=== PATIENT | female | born 1995 | race African-American/Black ===

== ENCOUNTER 2020-09-20 06:58 | Inpatient (IN) ==
[2020-09-20] MEDS ORDERED: Lactated Ringers 1000 ml BAG 1,000 ML IV ONE ×2 (07:34→17:06)
[2020-09-20 10:12] LABS: ABS Basophils 0.1 10^3/ul (0-0.2); ABS Eosinophils 0.1 10^3/ul (0-0.6); ABS Lymphocytes 1.3 10^3/ul (1.0-4.8); ABS Monocytes 0.5 10^3/ul (0-0.8); Eosinophil % 0.8 %; Hematocrit 31 % (35-47); Hemoglobin 9.4 g/dL (12.0-16.0); Lymphocyte % 10.8 %; Mean Corpuscular HGB Conc 31 g/dL (31-36); Mean Corpuscular Hemoglobin 21 pg (27-31); Mean Corpuscular Volume 67 fL (80-97); Mean Platelet Volume 8.8 fL (7.4-10.4); Nucleated Red Blood Cells % 0.1; Platelet Count 254 10^3/uL (150-450); Red Blood Count 4.57 10^6 /uL (3.70-4.87); Red Cell Distribution Width 20 % (10-15); White Blood Count 11.9 10^3/uL (3.5-10.8)
[2020-09-20 10:34] LABS: Urine Benzodiazepine Screen None Detected (None Detect); Urine Cannabinoids Screen None Detected (None Detect); Urine Opiates Screen None Detected (None Detect)
[2020-09-20 10:53] LABS: Microcytosis 1+; Polychromasia 1+
[2020-09-20] MEDS ORDERED: OBEPIDURAL 250 ML EPIDURAL ONE (16:01)
[2020-09-20] MEDS ORDERED: Lactated Ringers 1000 ml BAG 1,000 ML IV SCH ×3 (17:00→21:00)
[2020-09-20] MEDS ORDERED: Phenylephrine 40 mcg/mL 10mL (400mcg) SYRINGE IV PUSH PRN ×2 (17:06)
[2020-09-20] MEDS ORDERED: Sodium Citrate/Citric Acid LIQ 15 ML UDC PO PRN (17:06)
[2020-09-20] MEDS ORDERED: Lactated Ringers 1000 ml BAG 500 ML IV PRN ×2 (17:06)
[2020-09-20] MEDS ORDERED: EPHEDrine (Pressors) 50 MG/ML VIAL IV PUSH PRN ×2 (17:06)
[2020-09-20] MEDS ORDERED: OBEPIDURAL 250 ML EPIDURAL SCH (18:00)
[2020-09-20] MEDS ORDERED: Oxytocin in LR 20 UNITS/1,000 ML BAG IVPB ONE (19:52)
[2020-09-20] MEDS ORDERED: Dibucaine 1% OINT 28.35 GM TUBE PR PRN (20:32)
[2020-09-20] MEDS ORDERED: Glycerin ADULT 2.4 gm SUPP PR PRN (20:32)
[2020-09-20] MEDS ORDERED: Lidocaine 1% VIAL 10 MG/ML VIAL ONE (20:57)
[2020-09-20] MEDS: Witch Hazel PAD JAR TOPICAL PRN (20:59)
[2020-09-20] MEDS ORDERED: Oxytocin in LR 20 UNITS/1,000 ML BAG IVPB SCH (21:00)
[2020-09-20] MEDS ORDERED: Ammonia Inhalant 1 EA AMP ONE (22:12)
[2020-09-21 06:23] LABS: ABS Basophils 0.1 10^3/ul (0-0.2); ABS Eosinophils 0.1 10^3/ul (0-0.6); ABS Lymphocytes 2.3 10^3/ul (1.0-4.8); ABS Monocytes 1.2 10^3/ul (0-0.8); ABS Neutrophils 12.4 10^3/ul (1.5-7.7); Eosinophil % 0.4 %; Hematocrit 24 % (35-47); Hemoglobin 7.6 g/dL (12.0-16.0); Lymphocyte % 14.6 %; Mean Corpuscular HGB Conc 31 g/dL (31-36); Mean Corpuscular Hemoglobin 21 pg (27-31); Mean Corpuscular Volume 66 fL (80-97); Mean Platelet Volume 8.6 fL (7.4-10.4); Platelet Count 214 10^3/uL (150-450); Red Blood Count 3.68 10^6 /uL (3.70-4.87); Red Cell Distribution Width 20 % (10-15)
[2020-09-21 06:47] LABS: Albumin 2.9 g/dL (3.2-5.2); BUN/Creatinine Ratio 10.6 (8-20); Calcium 8.4 mg/dL (8.6-10.3); EGFR African American 134.3 (>60); Globulin 2.9 g/dL (2-4); Potassium 3.8 mmol/L (3.5-5.0); Total Bilirubin 0.2 mg/dL (0.2-1.0); Total Protein 5.8 g/dL (6.4-8.9)
[2020-09-21] MEDS: Witch Hazel PAD JAR TOPICAL PRN (19:57)
[2020-09-22 08:31] VITALS: BP 130/64
[2020-09-22 10:02] LABS: Hematocrit 26 % (35-47); Mean Corpuscular HGB Conc 31 g/dL (31-36); Mean Corpuscular Hemoglobin 21 pg (27-31); Mean Corpuscular Volume 67 fL (80-97); Mean Platelet Volume 8.3 fL (7.4-10.4); Platelet Count 259 10^3/uL (150-450); Red Blood Count 3.89 10^6 /uL (3.70-4.87); Red Cell Distribution Width 20 % (10-15); White Blood Count 15.6 10^3/uL (3.5-10.8)
== END 2020-09-22 14:24 | disposition home or self-care (01) | DRG 560 ==
LOC: MCHOBOUT 06:58 → MCHOB 07:23
PROVIDERS: ADMIT Midwife; ATTEND Midwife

== ENCOUNTER 2020-10-28 12:41 | Inpatient (IN) ==
[2020-10-28] MEDS ORDERED: NS 0.9% 1000 ml BAG 1,000 ML IV ONE (15:14)
[2020-10-28 15:45] LABS: ABS Basophils 0.1 10^3/ul (0-0.2); ABS Lymphocytes 1.3 10^3/ul (1.0-4.8); ABS Monocytes 0.4 10^3/ul (0-0.8); ABS Neutrophils 8.6 10^3/ul (1.5-7.7); Eosinophil % 0.3 %; Hematocrit 36 % (35-47); Hemoglobin 11.4 g/dL (12.0-16.0); Lymphocyte % 12.9 %; Mean Corpuscular HGB Conc 32 g/dL (31-36); Mean Corpuscular Hemoglobin 21 pg (27-31); Mean Corpuscular Volume 67 fL (80-97); Mean Platelet Volume 8.6 fL (7.4-10.4); Platelet Count 388 10^3/uL (150-450); Red Blood Count 5.43 10^6 /uL (3.70-4.87); Red Cell Distribution Width 24 % (10-15); White Blood Count 10.4 10^3/uL (3.5-10.8)
[2020-10-28] MEDS ORDERED: Piperacillin/Tazobac ADVAN 3.375 GM in NS 0.9% 100 ml BAG 100 ML IV ONE (16:15)
[2020-10-28 16:25] LABS: Albumin 4.1 g/dL (3.2-5.2); Albumin/Globulin Ratio 1.2 (1-3); C Reactive Protein 4.82 mg/L (<8.01); Calcium 9.5 mg/dL (8.6-10.3); EGFR African American 115.9 (>60); EGFR Non-African American 95.8 (>60); Globulin 3.3 g/dL (2-4); Total Bilirubin 0.8 mg/dL (0.2-1.0); Total Protein 7.4 g/dL (6.4-8.9)
[2020-10-28] MEDS ORDERED: HYDROmorphone 1 MG/1 ML SYRINGE IV ONE (17:09)
[2020-10-28] MEDS ORDERED: Ondansetron 4 mg VIAL 2 MG/ML 2 ml VIAL IV ONE (17:09)
[2020-10-28] MEDS ORDERED: NS 0.9% 1000 ml BAG 1,000 ML IV SCH (17:45)
[2020-10-28 20:30] LABS: Urine Appearance Cloudy; Urine Bilirubin Negative (Negative); Urine Blood Negative (Negative); Urine Color Yellow; Urine Glucose Negative (Negative); Urine Ketones Negative (Negative); Urine Nitrite Negative (Negative); Urine Protein Negative (Negative); Urine Specific Gravity 1.028 (1.010-1.030); Urine Urobilinogen Negative (Negative)
[2020-10-28 20:39] LABS: Urine Bacteria 1+ (Absent); Urine Red Blood Cell Absent (Absent); Urine Squamous Epithelial Cell Present (Absent); Urine White Blood Cell 2+(11-20/hpf) (Absent)
[2020-10-28] MEDS: NS 0.9% 1000 ml BAG 1,000 ML IV SCH (21:08)
[2020-10-29] MEDS ORDERED: Morphine 2 MG/ML SYRINGE IV PRN (03:40)
[2020-10-29] MEDS: Ondansetron 4 mg VIAL 2 MG/ML 2 ml VIAL IV PRN (03:59)
[2020-10-29] MEDS: NS 0.9% 1000 ml BAG 1,000 ML IV SCH ×2 (05:02→22:25)
[2020-10-29 06:17] LABS: ABS Eosinophils 0.2 10^3/ul (0-0.6); ABS Lymphocytes 1.7 10^3/ul (1.0-4.8); ABS Monocytes 0.4 10^3/ul (0-0.8); Eosinophil % 2.7 %; Hematocrit 32 % (35-47); Hemoglobin 9.6 g/dL (12.0-16.0); Lymphocyte % 23.1 %; Mean Corpuscular HGB Conc 31 g/dL (31-36); Mean Corpuscular Hemoglobin 21 pg (27-31); Mean Corpuscular Volume 68 fL (80-97); Mean Platelet Volume 8.6 fL (7.4-10.4); Platelet Count 312 10^3/uL (150-450); Red Blood Count 4.66 10^6 /uL (3.70-4.87); Red Cell Distribution Width 24 % (10-15); White Blood Count 7.3 10^3/uL (3.5-10.8)
[2020-10-29 06:29] LABS: Albumin 3.2 g/dL (3.2-5.2); Albumin/Globulin Ratio 1.1 (1-3); BUN/Creatinine Ratio 9.5 (8-20); Calcium 7.8 mg/dL (8.6-10.3); EGFR African American 117.7 (>60); EGFR Non-African American 97.3 (>60); Globulin 2.8 g/dL (2-4); Indirect Bilirubin 0.4 mg/dL (0.3-1.0); Potassium 3.6 mmol/L (3.5-5.0); Total Bilirubin 0.6 mg/dL (0.2-1.0)
[2020-10-29 06:43] LABS: TSH Ultra Thyroid Stim Horm 0.48 mcIU/mL (0.34-5.60)
[2020-10-29] MEDS: Morphine 2 MG/ML SYRINGE IV PRN (08:54)
[2020-10-29] MEDS ORDERED: Polyethylene Glycol 3350 17 GM PACKET PO PRN (10:33)
[2020-10-29] MEDS ORDERED: Senna TAB 8.6 mg TAB PO PRN (10:33)
[2020-10-29] MEDS ORDERED: Piperacillin/Tazobac ADVAN 3.375 GM in NS 0.9% 100 ml BAG 100 ML IV ONE (11:00)
[2020-10-29] MEDS ORDERED: Zosyn per Pharmacy NOTE FOLLOW UP SCH (11:00)
[2020-10-29 11:55] LABS: HDL Cholesterol 41.1 mg/dL
[2020-10-29] MEDS: ZOSYN 3.375 GM Q8H per EXTENDED INFUSION IV SCH ×2 (16:43→23:56)
[2020-10-30] MEDS: NS 0.9% 1000 ml BAG 1,000 ML IV SCH ×2 (04:15→06:23)
[2020-10-30 05:03] LABS: Albumin/Globulin Ratio 1.2 (1-3); BUN/Creatinine Ratio 5.4 (8-20); Calcium 7.7 mg/dL (8.6-10.3); EGFR African American 117.7 (>60); EGFR Non-African American 97.3 (>60); Globulin 2.6 g/dL (2-4); Potassium 3.4 mmol/L (3.5-5.0); Total Bilirubin 0.5 mg/dL (0.2-1.0); Total Protein 5.6 g/dL (6.4-8.9)
[2020-10-30] MEDS: ZOSYN 3.375 GM Q8H per EXTENDED INFUSION IV SCH ×2 (08:16→19:09)
[2020-10-30] MEDS: Morphine 2 MG/ML SYRINGE IV PRN (08:19)
[2020-10-30 08:35] LABS: ABS Eosinophils 0.3 10^3/ul (0-0.6); ABS Lymphocytes 2.5 10^3/ul (1.0-4.8); ABS Monocytes 0.5 10^3/ul (0-0.8); ABS Neutrophils 4.3 10^3/ul (1.5-7.7); Eosinophil % 4.1 %; Hematocrit 30 % (35-47); Lymphocyte % 32.1 %; Mean Corpuscular HGB Conc 30 g/dL (31-36); Mean Corpuscular Hemoglobin 21 pg (27-31); Mean Corpuscular Volume 69 fL (80-97); Mean Platelet Volume 8.6 fL (7.4-10.4); Nucleated Red Blood Cells % 0.2; Platelet Count 289 10^3/uL (150-450); Red Blood Count 4.33 10^6 /uL (3.70-4.87); Red Cell Distribution Width 25 % (10-15); White Blood Count 7.6 10^3/uL (3.5-10.8)
[2020-10-30] MEDS ORDERED: Buffered Lidocaine 1% SYRIN 1 ml INTRADERM ONE (13:15)
[2020-10-30] MEDS ORDERED: Ondansetron 4 mg VIAL 2 MG/ML 2 ml VIAL ONE (13:16)
[2020-10-30] MEDS ORDERED: fentaNYL 250 mcg/5 ml 50 MCG/ML 5 ml VIAL (250 MCG) ONE (13:16)
[2020-10-30] MEDS ORDERED: Rocuronium 50 mg VIAL 10 mg/ml 5 ml VIAL (50 mg) ONE ×2 (13:16→13:53)
[2020-10-30] MEDS ORDERED: Propofol 10 MG/ML 20 ML BTL ONE ×2 (13:16→14:05)
[2020-10-30] MEDS ORDERED: Lidocaine 2% PF 5 ML VIAL ONE ×2 (13:16→14:05)
[2020-10-30] MEDS ORDERED: Dexamethasone IV 4 MG/ML VIAL 1 ml VIAL ONE (13:16)
[2020-10-30] MEDS ORDERED: diPHENhydraMINE IV 50 MG/ML 1 ml VIAL (BENADRYL) IV PRN (13:17)
[2020-10-30] MEDS ORDERED: HYDROmorphone 1 MG/1 ML SYRINGE IV PRN (13:17)
[2020-10-30] MEDS ORDERED: Naloxone 0.4 mg VIAL 0.4 mg/ml 1 ml VIAL IV PRN (13:17)
[2020-10-30] MEDS ORDERED: Midazolam 2 mg/2 ml VIAL 1 mg/ml 2 ml VIAL (2 mg) ONE ×2 (13:17→13:53)
[2020-10-30] MEDS ORDERED: Prochlorperazine 5 mg/ml 2 ml VIAL (10 mg) IV PRN (13:17)
[2020-10-30] MEDS ORDERED: Iohexol 180 (CONTRAST) 10 ML SDV IV ONE ×2 (13:36→15:29)
[2020-10-30] MEDS ORDERED: Bupivacaine 0.25% SDV 30 ML ONE (13:37)
[2020-10-30] MEDS ORDERED: fentaNYL 100 mcg/2 ml 50 MCG/ML VIAL ONE (13:52)
[2020-10-30] MEDS ORDERED: Lactated Ringers 1000 ml BAG 1,000 ML IV SCH (14:00)
[2020-10-30] MEDS ORDERED: Potassium Chlor 20 meq TAB.ER PO ONE (16:07)
[2020-10-30] MEDS: Ondansetron 4 mg VIAL 2 MG/ML 2 ml VIAL IV PRN (17:19)
[2020-10-30] MEDS ORDERED: Phenol 1.4% Throat Spray 177 ml BTL MT PRN (17:37)
[2020-10-31 06:27] LABS: Albumin 3.1 g/dL (3.2-5.2); Albumin/Globulin Ratio 1.1 (1-3); BUN/Creatinine Ratio 3.3 (8-20); Calcium 8.1 mg/dL (8.6-10.3); EGFR African American 149.9 (>60); EGFR Non-African American 123.9 (>60); Globulin 2.8 g/dL (2-4); Potassium 3.6 mmol/L (3.5-5.0); Total Bilirubin 1.2 mg/dL (0.2-1.0); Total Protein 5.9 g/dL (6.4-8.9)
[2020-10-31] MEDS: Morphine 2 MG/ML SYRINGE IV PRN (07:35)
[2020-10-31] MEDS: NS 0.9% 1000 ml BAG 1,000 ML IV SCH (09:13)
[2020-10-31 11:03] VITALS: BP 128/67
[2020-11-02] MEDS ORDERED: Scopolamine PATCH Remove NOTE PATCH OFF ONE (13:15)
== END 2020-10-31 15:48 | disposition home or self-care (01) | DRG 951 ==
LOC: SSU 12:41 → ED 12:41 → OBSVTOIN 18:16 → SSU 23:36
PROVIDERS: ADMIT Pediatrics; ATTEND Surgery

== ENCOUNTER 2023-06-09 08:08 | Inpatient (IN) ==
[2023-06-09] MEDS ORDERED: Lactated Ringers 1000 ml BAG 1,000 ML IV ONE (08:48)
[2023-06-09] MEDS ORDERED: Promethazine INJ(RESTRICTED) 25 MG/ML 1 ml VIAL IV PRN (08:48)
[2023-06-09] MEDS ORDERED: Buffered Lidocaine 1% SYRIN 1 ml INTRADERM ONE (08:48)
[2023-06-09] MEDS ORDERED: Lactated Ringers 1000 ml BAG 1,000 ML IV SCH (09:00)
[2023-06-09] MEDS: miSOPROStol 100 mcg TAB PO SCH ×3 (10:33→18:38)
[2023-06-09 11:03] LABS: ABS Basophils 0.1 10^3/uL (0.0-0.1); ABS Eosinophils 0.2 10^3/uL (0.0-0.5); ABS Lymphocytes 2.5 10^3/uL (1.0-4.8); ABS Monocytes 0.7 10^3/uL (0.0-0.9); ABS Neutrophils 6.3 10^3/uL (1.5-7.6); ABS Nucleated RBC 0.06 10^3/ul; Eosinophil % 1.8 %; Hematocrit 30.6 % (35-45); Hemoglobin 9.7 g/dL (11.5-14.3); Lymphocyte % 25.5 %; Mean Corpuscular Hemoglobin 21.6 pg (27-33); Mean Corpuscular Hgb Conc 31.9 g/dL (31-36); Mean Corpuscular Volume 67.7 fL (80-97); Mean Platelet Volume 8.9 fL (7.5-11.2); Nucleated Red Blood Cells % 0.7 /100 WBC (0.0-0.4); Platelet Count 271 10^3/uL (150-450); Red Blood Count 4.52 10^6/uL (3.63-4.92); Red Cell Distribution Width 19.8 % (12-17); White Blood Count 9.6 10^3/uL (3.8-11.8)
[2023-06-09 11:42] LABS: Urine Benzodiazepine Screen None Detected (None Detect); Urine Opiates Screen None Detected (None Detect)
[2023-06-09] MEDS ORDERED: OBEPIDURAL (200 ML) 200 ML EPIDURAL ONE (23:45)
[2023-06-09] MEDS ORDERED: Lidocaine 1% w EPI 1:200,000 SDV 10 ML VIAL ONE (23:45)
[2023-06-10] MEDS ORDERED: Lactated Ringers 1000 ml BAG 1,000 ML IV ONE (00:26)
[2023-06-10] MEDS ORDERED: Sodium Citrate/Citric Acid LIQ 15 ML UDC PO PRN (00:26)
[2023-06-10] MEDS ORDERED: Phenylephrine 40 mcg/mL 10mL (400mcg) SYRINGE IV PUSH PRN ×2 (00:26)
[2023-06-10] MEDS ORDERED: Lactated Ringers 1000 ml BAG 1,000 ML IV SCH ×2 (01:00→06:00)
[2023-06-10] MEDS ORDERED: OBEPIDURAL (200 ML) 200 ML EPIDURAL SCH (01:00)
[2023-06-10 01:25] LABS: Urine Appearance Clear; Urine Bilirubin Negative (Negative); Urine Blood Negative (Negative); Urine Color Yellow; Urine Glucose Negative (Negative); Urine Ketones Negative (Negative); Urine Nitrite Negative (Negative); Urine Protein 1+(30 mg/dL) (Negative); Urine Specific Gravity 1.019 (1.002-1.030); Urine Urobilinogen Negative (Negative)
[2023-06-10 01:30] LABS: Urine Bacteria Absent (Absent); Urine Red Blood Cell Absent (Absent); Urine Squamous Epithelial Cell Present (Absent); Urine White Blood Cell Absent (Absent)
[2023-06-10] MEDS ORDERED: Oxytocin in LR 20,000 MILLI.UNIT/1,000 ML BAG IV SCH (02:15)
[2023-06-10] MEDS ORDERED: Glycerin ADULT 2.4 gm SUPP PR PRN (05:44)
[2023-06-10] MEDS ORDERED: Measles, Mumps,Rubella VACC 0.5 ML/VIAL SUBCUT ONE (05:44)
[2023-06-10] MEDS: Witch Hazel PAD JAR TOPICAL PRN ×2 (06:22→19:31)
[2023-06-10] MEDS: Dibucaine 1% OINT 28.35 GM TUBE PR PRN ×2 (06:22→19:31)
[2023-06-11 06:27] LABS: ABS Basophils 0.1 10^3/uL (0.0-0.1); ABS Eosinophils 0.2 10^3/uL (0.0-0.5); ABS Lymphocytes 3.1 10^3/uL (1.0-4.8); ABS Monocytes 0.7 10^3/uL (0.0-0.9); ABS Neutrophils 7.7 10^3/uL (1.5-7.6); ABS Nucleated RBC 0.02 10^3/ul; Eosinophil % 1.6 %; Hematocrit 28.3 % (35-45); Hemoglobin 8.9 g/dL (11.5-14.3); Lymphocyte % 26.6 %; Mean Corpuscular Hemoglobin 21.5 pg (27-33); Mean Corpuscular Hgb Conc 31.5 g/dL (31-36); Mean Corpuscular Volume 68.2 fL (80-97); Mean Platelet Volume 8.1 fL (7.5-11.2); Nucleated Red Blood Cells % 0.2 /100 WBC (0.0-0.4); Platelet Count 250 10^3/uL (150-450); Red Blood Count 4.15 10^6/uL (3.63-4.92); White Blood Count 11.8 10^3/uL (3.8-11.8)
[2023-06-11] MEDS ORDERED: Varicella Virus Vaccine Live 0.5 ML VIAL SUBCUT ONE (11:00)
[2023-06-11] MEDS: Dibucaine 1% OINT 28.35 GM TUBE PR PRN (11:45)
[2023-06-11] MEDS ORDERED: Measles, Mumps,Rubella VACC 0.5 ML/VIAL ONE (16:35)
[2023-06-12] MEDS: Witch Hazel PAD JAR TOPICAL PRN (07:21)
[2023-06-12 07:29] VITALS: BP 137/75
== END 2023-06-12 13:15 | disposition home or self-care (01) | DRG 560 ==
LOC: MCHOBOUT 08:08 → MCHOB 08:49
PROVIDERS: ADMIT Registered Nurse; ATTEND Registered Nurse